=== PATIENT | female | born 1960 | race Caucasian/White ===

== ENCOUNTER 2021-07-20 08:52 | Observation (INO) ==
[2021-07-20] MEDS ORDERED: ORPHENADRINE 60 MG/2 ML VIAL IM STA (11:06)
[2021-07-20] MEDS ORDERED: KETOROLAC 30 MG/1 ML VIAL IV STA (11:06)
[2021-07-20 11:20] LABS: Basophils # 0.1 10*3/uL (0.0-0.2); Basophils % 0.6 % (0.0-0.8); Eosinophils # 0.1 10*3/uL (0.0-0.87); Eosinophils % 0.7 % (0.00-10.9); Hematocrit 43.8 VOL% (35.7-47.0); Hemoglobin 14.9 GM/DL (12.0-16.0); Immature Granulocytes % 0.8 %; Immature Granulocytes Absolute 0.09 #; Lymphocytes # 2.2 10*3/uL (1.4-4.0); Lymphocytes % 19.7 % (21.3-54.2); Mean Corpuscular Volume 108.4 FL (87-102); Monocytes # 1.2 10*3/uL (0.11-0.8); Monocytes % 11.1 % (1.7-12.7); NRBC # 0.02 10*3/uL; Neutrophils % 67.1 % (38.7-73.9); Platelet Count 178 T/CUMM (130-400); Red Blood Count 4.04 MC/CUMM (3.8-5.5); Red Cell Distribution Width 13.6 % (9.3-17.3)
[2021-07-20 12:00] LABS: Albumin 3.6 G/DL (3.4-5.0); Osmolality,Calculated 257.2 MOS/KG (273-304); Potassium 4.4 MMOL/L (3.5-5.1); Total Protein 8.5 G/DL (6.4-8.2)
[2021-07-20] MEDS ORDERED: FUROSEMIDE 40 MG/4 ML VIAL IV STA (12:41)
[2021-07-20] MEDS ORDERED: ACETAMINOPHEN 325 MG TABLET PO PRN (12:43)
[2021-07-20] MEDS ORDERED: ONDANSETRON 4 MG/2 ML VIAL IV PRN (12:43)
[2021-07-20] MEDS: DOCUSATE SODIUM 100 MG CAPSULE PO SCH (20:42)
[2021-07-20] MEDS ORDERED: traMADol 50 MG TABLET PO PRN (22:48)
[2021-07-20] MEDS: DIAZEPAM 5 MG TABLET PO SCH (23:10)
[2021-07-20] MEDS: TOLTERODINE 2 MG TABLET PO SCH (23:11)
[2021-07-20] MEDS: ZOLPIDEM 5 MG TABLET PO SCH (23:13)
[2021-07-21 05:10] LABS: Basophils # 0.1 10*3/uL (0.0-0.2); Basophils % 0.7 % (0.0-0.8); Eosinophils # 0.1 10*3/uL (0.0-0.87); Eosinophils % 0.7 % (0.00-10.9); Hematocrit 39.1 VOL% (35.7-47.0); Hemoglobin 13.2 GM/DL (12.0-16.0); Immature Granulocytes % 0.5 %; Immature Granulocytes Absolute 0.04 #; Lymphocytes # 1.6 10*3/uL (1.4-4.0); Lymphocytes % 18.7 % (21.3-54.2); Mean Corpuscular HGB Conc 33.8 GM/DL (32-36); Mean Corpuscular Volume 107.7 FL (87-102); Mean Platelet Volume 10.2 FL (9.6-12.0); Monocytes # 1.1 10*3/uL (0.11-0.8); Monocytes % 12.4 % (1.7-12.7); Platelet Count 152 T/CUMM (130-400); Red Blood Count 3.63 MC/CUMM (3.8-5.5); Red Cell Distribution Width 13.2 % (9.3-17.3); White Blood Count 8.6 T/CUMM (4-12)
[2021-07-21 05:35] LABS: Albumin 3.3 G/DL (3.4-5.0); Bilirubin,Total 1.2 MG/DL (0.20-1.00); Calcium 8.7 MG/DL (8.5-10.1); Osmolality,Calculated 260.1 MOS/KG (273-304); Potassium 4.4 MMOL/L (3.5-5.1); Total Protein 7.5 G/DL (6.4-8.2)
[2021-07-21] MEDS ORDERED: PROPRANOLOL 20 MG TABLET PO SCH (09:00)
[2021-07-21] MEDS ORDERED: FLUoxetine 20 MG CAPSULE PO SCH (09:00)
[2021-07-21] MEDS ORDERED: MAGNESIUM SULF RIDER 4 GM/100 ML PREMIX IV ONE (09:30)
[2021-07-21] MEDS: FUROSEMIDE 40 MG/4 ML VIAL IV SCH ×2 (10:40→17:20)
[2021-07-21] MEDS: MAGNESIUM OXIDE 400 MG TABLET PO SCH (10:44)
[2021-07-21] MEDS: ASPIRIN EC 81 MG TABLET PO SCH (10:44)
[2021-07-21] MEDS: DOCUSATE SODIUM 100 MG CAPSULE PO SCH ×2 (10:44→20:48)
[2021-07-21] MEDS: PANTOPRAZOLE 40 MG TABLET PO SCH (10:44)
[2021-07-21] MEDS: SIMVASTATIN 10 MG TABLET PO SCH (10:45)
[2021-07-21] MEDS: carvediloL 6.25 MG TABLET PO SCH ×2 (10:45→17:24)
[2021-07-21] MEDS: OLANZapine 2.5 MG TABLET PO SCH (10:45)
[2021-07-21] MEDS: DIAZEPAM 5 MG TABLET PO SCH ×2 (10:45→20:48)
[2021-07-21] MEDS: ZOLPIDEM 5 MG TABLET PO SCH (20:48)
[2021-07-21] MEDS: TOLTERODINE 2 MG TABLET PO SCH (20:48)
[2021-07-22 05:37] LABS: Basophils # 0.1 10*3/uL (0.0-0.2); Basophils % 0.8 % (0.0-0.8); Eosinophils # 0.1 10*3/uL (0.0-0.87); Eosinophils % 1.1 % (0.00-10.9); Hematocrit 39.1 VOL% (35.7-47.0); Hemoglobin 13.2 GM/DL (12.0-16.0); Immature Granulocytes % 0.6 %; Immature Granulocytes Absolute 0.04 #; Lymphocytes # 2.4 10*3/uL (1.4-4.0); Lymphocytes % 32.6 % (21.3-54.2); Mean Corpuscular HGB Conc 33.8 GM/DL (32-36); Mean Corpuscular Volume 107.4 FL (87-102); Mean Platelet Volume 10.4 FL (9.6-12.0); Monocytes # 0.9 10*3/uL (0.11-0.8); Monocytes % 12.6 % (1.7-12.7); Neutrophils % 52.3 % (38.7-73.9); Platelet Count 142 T/CUMM (130-400); Red Blood Count 3.64 MC/CUMM (3.8-5.5); Red Cell Distribution Width 13.6 % (9.3-17.3); White Blood Count 7.2 T/CUMM (4-12)
[2021-07-22 06:00] LABS: Calcium 9.5 MG/DL (8.5-10.1); Osmolality,Calculated 269.5 MOS/KG (273-304); Potassium 3.8 MMOL/L (3.5-5.1)
[2021-07-22 06:02] LABS: Risk Ratio 2.93
[2021-07-22] MEDS ORDERED: SERTRALINE 50 MG TABLET PO SCH (09:00)
[2021-07-22] MEDS ORDERED: amLODIPine 5 MG TABLET PO SCH (09:00)
[2021-07-22] MEDS: carvediloL 6.25 MG TABLET PO SCH ×2 (09:05→17:49)
[2021-07-22] MEDS: ASPIRIN EC 81 MG TABLET PO SCH (09:06)
[2021-07-22] MEDS: DOCUSATE SODIUM 100 MG CAPSULE PO SCH (09:06)
[2021-07-22] MEDS: MAGNESIUM OXIDE 400 MG TABLET PO SCH (09:06)
[2021-07-22] MEDS: PANTOPRAZOLE 40 MG TABLET PO SCH (09:06)
[2021-07-22] MEDS: OLANZapine 2.5 MG TABLET PO SCH (09:07)
[2021-07-22] MEDS: SIMVASTATIN 10 MG TABLET PO SCH (09:07)
[2021-07-22] MEDS: DIAZEPAM 5 MG TABLET PO SCH (09:07)
[2021-07-22] MEDS: FUROSEMIDE 40 MG/4 ML VIAL IV SCH ×2 (09:10→17:50)
[2021-07-22 18:45] VITALS: BP 134/44
== END 2021-07-22 20:08 | disposition home or self-care (01) ==
LOC: N.EDINP 08:52 → N.ED 08:52 → N.EDINP 14:15 → N.TELES 14:22
PROVIDERS: ADMIT Internal Medicine; ATTEND Internal Medicine